=== PATIENT | male | born 1970 | race Caucasian/White ===

== ENCOUNTER 2020-09-29 18:19 | Inpatient (IN) | payer MEDICARE, MEDICAID ==
[~2020-09-29] VITALS: Ht 172.7 cm; Wt 78.0 kg
[~2020-09-29 18:19] MED LIST: AMOX1TAB12 PO; BACL-19 PO; BENZ1TAB61 PO; OLAN10TA9 PO; QUET100T PO; TOPI25CA3 PO
[2020-09-29 19:30] VITALS: BP 147/95
[2020-09-29] MEDS ORDERED: DOCUSATE 100 MG CAPSULE PO PRN (19:30)
[2020-09-29] MEDS ORDERED: POLYETHYLENE GLYCOL 17 GM PACKET PO PRN (19:30)
[2020-09-29 21:26] LABS: CHOL/HDL RATIO 3.5; FREE T4 (FREE THYROXINE) 0.91 ng/dL (0.76-1.46); LDL/HDL RATIO 2.2 (0.5-3.0)
[2020-09-29 23:12] LABS: MICROSCOPIC NOT IND
[2020-09-30] MEDS ORDERED: LORA-445 PO (00:30)
[2020-09-30] MEDS ORDERED: OXCA600T10 PO (00:30)
[2020-09-30] MEDS ORDERED: LOSA100T14 PO (00:30)
[2020-09-30] MEDS ORDERED: ESCI10TA97 PO (00:30)
[2020-09-30] MEDS ORDERED: MULT-658 PO (00:30)
[2020-09-30] MEDS ORDERED: HYDR50CA2 PO (00:30)
[2020-09-30] MEDS ORDERED: IPRA4AER INH (00:30)
[2020-09-30] MEDS ORDERED: ATOR20TA37 PO (00:30)
[2020-09-30 05:48] LABS: BASOPHILS % (AUTO) 2 % (0-1); EOSINOPHILS % (AUTO) 3 % (1-7); LYMPHOCYTES % (AUTO) 30 % (22-44); MEAN CORPUSCULAR HEMOGLOBIN 30.1 pg (27.5-34.5); MEAN CORPUSCULAR HGB CONC 33.5 g/dL (33.2-36.2); MEAN PLATELET VOLUME 6.5 fL (7.4-10.4); MONOCYTES % (AUTO) 11 % (2-9); NEUTROPHILS % (AUTO) 54 % (42-75); PLATELET COUNT 294 x10^3/uL (130-400); RED BLOOD COUNT 4.52 x10^6/uL (4.38-5.82); RED CELL DISTRIBUTION WIDTH 13.5 % (9.4-14.8)
[2020-09-30 05:49] LABS: MD NO
[2020-09-30 05:52] LABS: ALANINE AMINOTRANSFERASE 42 U/L (12-78); ALBUMIN 3.8 g/dL (3.4-5.0); ANION GAP 7 mmol/L (5-15); CALCIUM 9.4 mg/dL (8.5-10.1); CHLORIDE 108 mmol/L (98-107); CREATININE 1.08 mg/dL (0.7-1.3)
[2020-09-30 05:55] LABS: ALKALINE PHOSPHATASE 84 U/L (45-117); BILIRUBIN,TOTAL 0.4 mg/dL (0.2-1.0); TOTAL PROTEIN 6.6 g/dL (6.4-8.2)
[2020-09-30 07:48] VITALS: BP 126/73
[2020-09-30] MEDS ORDERED: NICOTINE 14MG/24 HR PATCH.TD24 TD SCH (09:00)
[2020-09-30] MEDS ORDERED: IBUP-1223 PO (09:37)
[2020-09-30] MEDS ORDERED: OLAN10TA9 PO (09:37)
[2020-09-30] MEDS ORDERED: OXCARBAZEPINE 300MG TABLET PO ONE (10:31)
[2020-09-30] MEDS: OXCARBAZEPINE 300MG TABLET PO SCH ×2 (10:35→20:20)
[2020-09-30] MEDS: ESCITALOPRAM 10MG TABLET PO SCH (10:35)
[2020-09-30] MEDS: LOSARTAN 100 MG TAB PO SCH (10:36)
[2020-09-30] MEDS ORDERED: ALBUTEROL-IPRATROPIUM MDI INH INH PRN (15:30)
[2020-09-30 19:47] VITALS: BP 108/70
[2020-09-30] MEDS: ATORVASTATIN 20 MG TABLET PO SCH (20:20)
[2020-09-30] MEDS ORDERED: OLANZAPINE 10 MG TABLET PO SCH (21:00)
[2020-10-01 07:20] VITALS: BP 130/79
[2020-10-01] MEDS: LOSARTAN 100 MG TAB PO SCH (07:49)
[2020-10-01] MEDS: OXCARBAZEPINE 300MG TABLET PO SCH ×2 (07:50→20:04)
[2020-10-01] MEDS: ESCITALOPRAM 10MG TABLET PO SCH (07:51)
[2020-10-01] MEDS ORDERED: LOSARTAN 100 MG TAB PO SCH (09:00)
[2020-10-01] MEDS ORDERED: ESCITALOPRAM 10MG TABLET PO SCH (09:00)
[2020-10-01 19:16] VITALS: BP 134/85
[2020-10-01] MEDS: HYDROXYZINE PAMOATE 50MG CAP PO PRN (20:04)
[2020-10-01] MEDS: OLANZAPINE 5 MG TABLET PO SCH (20:04)
[2020-10-01] MEDS: ATORVASTATIN 20 MG TABLET PO SCH (20:04)
[2020-10-01] MEDS: IBUPROFEN 200 MG TABLET PO PRN (20:04)
[2020-10-02 07:51] VITALS: BP 132/86
[2020-10-02] MEDS: OXCARBAZEPINE 300MG TABLET PO SCH ×2 (08:27→20:05)
[2020-10-02] MEDS: LOSARTAN 100 MG TAB PO SCH (08:27)
[2020-10-02] MEDS: ESCITALOPRAM 10MG TABLET PO SCH (08:28)
[2020-10-02] MEDS: IBUPROFEN 200 MG TABLET PO PRN ×2 (08:29→15:59)
[2020-10-02] MEDS: HYDROXYZINE PAMOATE 50MG CAP PO PRN (10:44)
[2020-10-02 19:30] VITALS: BP 129/87
[2020-10-02] MEDS: OLANZAPINE 5 MG TABLET PO SCH (20:05)
[2020-10-02] MEDS: ATORVASTATIN 20 MG TABLET PO SCH (20:05)
[2020-10-03 07:20] VITALS: BP 131/90
[2020-10-03] MEDS: OXCARBAZEPINE 300MG TABLET PO SCH ×2 (08:22→20:04)
[2020-10-03] MEDS: IBUPROFEN 200 MG TABLET PO PRN ×2 (08:23→15:57)
[2020-10-03] MEDS: ESCITALOPRAM 10MG TABLET PO SCH (08:24)
[2020-10-03] MEDS: LOSARTAN 100 MG TAB PO SCH (08:24)
[2020-10-03] MEDS: HYDROXYZINE PAMOATE 50MG CAP PO PRN (10:41)
[2020-10-03 19:30] VITALS: BP 132/77
[2020-10-03] MEDS: ATORVASTATIN 20 MG TABLET PO SCH (20:04)
[2020-10-03] MEDS: OLANZAPINE 5 MG TABLET PO SCH (20:05)
[2020-10-03] MEDS: ACETAMINOPHEN 325 MG TABLET PO PRN (20:06)
[2020-10-04 07:05] VITALS: BP 153/98
[2020-10-04] MEDS: IBUPROFEN 200 MG TABLET PO PRN (07:36)
[2020-10-04] MEDS ORDERED: maalox/diphenh/lido/sucralfate 5 ML PO PRN (08:00)
[2020-10-04] MEDS: OXCARBAZEPINE 300MG TABLET PO SCH ×2 (08:39→20:01)
[2020-10-04] MEDS: LOSARTAN 100 MG TAB PO SCH (08:39)
[2020-10-04] MEDS: ESCITALOPRAM 10MG TABLET PO SCH (08:39)
[2020-10-04] MEDS: ACETAMINOPHEN 325 MG TABLET PO PRN ×2 (12:03→20:01)
[2020-10-04] MEDS: maalox/diphenh/lido/sucralfate 5 ML PO PRN ×2 (12:55→18:20)
[2020-10-04] MEDS: HYDROXYZINE PAMOATE 50MG CAP PO PRN (19:05)
[2020-10-04 19:30] VITALS: BP 127/82
[2020-10-04] MEDS: OLANZAPINE 5 MG TABLET PO SCH (20:02)
[2020-10-04] MEDS: ATORVASTATIN 20 MG TABLET PO SCH (20:02)
[2020-10-05 07:22] VITALS: BP 127/91
[2020-10-05] MEDS: ACETAMINOPHEN 325 MG TABLET PO PRN ×3 (08:12→20:14)
[2020-10-05] MEDS: OXCARBAZEPINE 300MG TABLET PO SCH ×2 (08:12→20:14)
[2020-10-05] MEDS: LOSARTAN 100 MG TAB PO SCH (08:12)
[2020-10-05] MEDS: ESCITALOPRAM 10MG TABLET PO SCH (08:12)
[2020-10-05] MEDS: maalox/diphenh/lido/sucralfate 5 ML PO PRN ×3 (08:13→20:14)
[2020-10-05] MEDS ORDERED: Albuterol-Ipratropium Mdi INH (16:14)
[2020-10-05] MEDS ORDERED: OLAN5TAB9 PO (16:14)
[2020-10-05] MEDS ORDERED: ATOR20TA37 PO (16:14)
[2020-10-05] MEDS ORDERED: ESCI10TA97 PO (16:14)
[2020-10-05] MEDS ORDERED: MULT-658 PO (16:14)
[2020-10-05] MEDS ORDERED: LOSA100T2 PO (16:14)
[2020-10-05] MEDS ORDERED: OXCA300T19 PO (16:14)
[2020-10-05] MEDS ORDERED: BENZ1TAB61 PO (16:14)
[2020-10-05 19:37] VITALS: BP 135/85
[2020-10-05] MEDS: ATORVASTATIN 20 MG TABLET PO SCH (20:14)
[2020-10-05] MEDS: OLANZAPINE 5 MG TABLET PO SCH (20:14)
[2020-10-05] MEDS: HYDROXYZINE PAMOATE 50MG CAP PO PRN (20:14)
[2020-10-06] MEDS: ACETAMINOPHEN 325 MG TABLET PO PRN (07:23)
[2020-10-06 07:35] VITALS: BP 135/92
[2020-10-06] MEDS: LOSARTAN 100 MG TAB PO SCH (08:53)
[2020-10-06] MEDS: OXCARBAZEPINE 300MG TABLET PO SCH (08:53)
[2020-10-06] MEDS: ESCITALOPRAM 10MG TABLET PO SCH (08:53)
[2020-10-06] MEDS: maalox/diphenh/lido/sucralfate 5 ML PO PRN (09:00)
== END 2020-10-06 10:51 | disposition home or self-care (01) | DRG 885 ==
LOC: 3E 19:51
PROVIDERS: ADMIT Psychiatry & Neurology Psychosomatic Medicine; ATTEND Psychiatry & Neurology Psychosomatic Medicine
DX: F25.0 Schizoaffective disorder, bipolar type (principal); E78.5 Hyperlipidemia, unspecified; F12.10 Cannabis abuse, uncomplicated; F98.8 Other specified behavioral and emotional disorders with onset usually occurring in childhood and adolescence; G89.29 Other chronic pain; I10 Essential (primary) hypertension; K08.89 Other specified disorders of teeth and supporting structures; J45.909 Unspecified asthma, uncomplicated; Z66 Do not resuscitate; F90.9 Attention-deficit hyperactivity disorder, unspecified type; M54.5 Low back pain; F17.210 Nicotine dependence, cigarettes, uncomplicated; Z79.899 Other long term (current) drug therapy; Z91.5 Personal history of self-harm; Z56.0 Unemployment, unspecified
CPT/HCPCS: 36415; 71045; 80053; 80061; 81003; 82607; 84439; 84443; 85025; 93005